=== PATIENT | female | born 2000 | race Asian ===

== ENCOUNTER 2020-10-30 14:36 | Outpatient (CLI) | payer OTHER | END 2020-10-30 14:37 | disposition home or self-care (01) | LOC: BICCT 14:36 | PROVIDERS: ATTEND Family Medicine | DX: R51.9 Headache, unspecified (principal); G89.29 Other chronic pain | CPT/HCPCS: 70450 ==

== ENCOUNTER 2023-04-13 09:29 | Day surgery (SDC) | payer BC ==
[2023-04-12 11:52] VITALS: BMI 25.6
[2023-04-13] MEDS ORDERED: Oxymetazoline HCl 0.05% (30 ML BOT) ONE ×2 (10:37→11:43)
[2023-04-13] MEDS ORDERED: Scopolamine 1 mg/72 hour Patch ONE (10:49)
[2023-04-13 10:55] LABS: Hematocrit 38.7 % (36.0-47.0)
[2023-04-13 11:14] LABS: BHCG - Serum Negative (NEGATIVE); Pregs Control Background? CLEAR/WHITE (CLR/WHITE); Pregs Control Bar Appear? YES (CONTROL BAR)
[2023-04-13] MEDS ORDERED: Lidocaine 1% PF 5 ML VIAL ONE (11:19)
[2023-04-13] MEDS ORDERED: fentaNYL PF 100 MCG/2 ML SYRINGE ONE (11:19)
[2023-04-13] MEDS ORDERED: Ondansetron PF 4 MG/2 ML Vial ONE (11:19)
[2023-04-13] MEDS ORDERED: Midazolam HCl 2 mg/2 ml Vial ONE (11:19)
[2023-04-13] MEDS ORDERED: PROPOFOL 20 ML ONE (11:19)
[2023-04-13] MEDS ORDERED: Dexamethasone 20 MG/5 ML VIAL ONE (11:19)
[2023-04-13] MEDS ORDERED: Lidocaine 1% (PF) 30 ML VIAL ONE (11:43)
[2023-04-13] MEDS ORDERED: Bacitracin Zinc Ointment 30 gm TUBE ONE (11:43)
[2023-04-13] MEDS ORDERED: EPINEPHrine 1 MG/ML VIAL ONE (11:43)
[2023-04-13] MEDS ORDERED: fentaNYL 50 mcg/mL 1 mL Vial ONE ×2 (14:24→14:32)
[2023-04-13] MEDS ORDERED: HYDROcodone/Acetaminophen 5/325 mg Tablet ONE (15:20)
== END 2023-04-13 14:45 | disposition home or self-care (01) ==
LOC: SDC 09:29
PROVIDERS: ATTEND Specialist
PROC: 09TL0ZZ Resection of Nasal Turbinate, Open Approach (ICD-10-PCS; principal; 2023-04-13)
PROC: 09BM0ZZ Excision of Nasal Septum, Open Approach (ICD-10-PCS; principal; 2023-04-13)
DX: J34.2 Deviated nasal septum (principal); J34.3 Hypertrophy of nasal turbinates; J30.9 Allergic rhinitis, unspecified; J34.89 Other specified disorders of nose and nasal sinuses; F41.9 Anxiety disorder, unspecified; F32.A Depression, unspecified; Z79.899 Other long term (current) drug therapy; Z98.890 Other specified postprocedural states
CPT/HCPCS: 84703; 85014; J0171; J1100; J2001; J2250; J2405; J2704; J3010